=== PATIENT | female | born 1990 | race Caucasian/White ===

== ENCOUNTER 2017-03-26 19:24 | Emergency (ER) | payer OTHER ==
[~2017-03-26] VITALS: Ht 154.9 cm; Wt 79.1 kg
[~2017-03-26 19:24] MED LIST: PREN1TAB47 PO
[2017-03-26 19:30] VITALS: BP 131/92; PULSE 109; RESP 20; O2SAT 99
[2017-03-26 20:26] LABS: BASOPHILS % (AUTO) 0.2 % (0-3); EOSINOPHILS % (AUTO) 0.7 % (0-5); MONOCYTES % (AUTO) 6.9 % (4-12); Mean Corpuscular Hemoglobin 31.2 pg (27.0-35.0); Mean Corpuscular Volume 89.4 fL (81-100); NEUTROPHILS % (AUTO) 77.8 % (40-74); Platelet Count 203 bil/L (150-400)
[2017-03-26 20:45] LABS: Magnesium 1.8 mg/dL (1.6-2.6)
[2017-03-26 23:18] LABS: APPEARANCE,URINE SLIGHTLY CLOUDY (CLEAR,HAZY); COLOR,URINE YELLOW (YELLOW); OCCULT BLOOD,URINE TRACE (NEGATIVE); UROBILINOGEN,URINE NORMAL (NORMAL)
[2017-03-26] MEDS ORDERED: _Ondansetron ODT 4 mg Tablet PO PRN (23:45)
--- NOTE | 2017-03-26 23:52 | ED.REPORT ---
HPI-Abd Pain F Under 38 Date of Service Mar 26, 2017 ED Provider: Renaldo Guillen MD A 26 year old female with no pertinent medical history presents to the ED complaining of abdominal pain. 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 The pt then began to have significant abdominal cramping this morning with a fever of 102.1 degrees and blood in her stool. She was seen by her PCP today and diagnosed with a stomach virus. She was prescribed antibiotics but has not taken these yet. The pt was not on antibiotics prior to this visit. Nursing Notes Stated Complaint: ABDOMINAL PAIN, BLEEDING Chief Complaint: Female Abdominal Pain Nursing Notes Reviewed: Yes Allergies: Coded Allergies: Sulfa (Sulfonamide Antibiotics) (Verified Allergy, Severe, HIVES, 11/24/12) Scheduled Vit/Fe Fumarate/Fa-Expunged Drug, Do (-Expunged Drug, Do Not Renew!) 1 Tab Tablet 1 TAB PO DAILY General Time Seen by MD: 23:34 Chief Complaint Abdominal pain Hx Obtained From: Patient Arrived By: Walk-in Sudden in Onset?: No Onset Occurred: 9 - 12 hours ago Symptom Duration: Since onset Recent Healthcare: No recent hospitalization, Recent doctor visit Similar Sx Previous: No Past Medical History Past Medical History none reported Past Surgical History oral Smoking History Unknown if Ever Smoker Social History Other Social History: Good social support Ambulatory Status Independent Review of Systems Review of Systems Note: blood in stool Constitutional: Reports: Fever Respiratory: Denies: Non-productive cough, Shortness of breath Cardiovascular: Denies: Chest pain GI: Reports: Abdominal pain (cramping), Diarrhea, Denies: Nausea, Vomiting Musculoskeletal: Denies: Back pain, Neck pain Complete sys rev & neg: except as marked. Physical Exam Initial Vital Signs Vital Signs (First) Date Time Temp Pulse Resp B/P Pulse Ox O2 Delivery O2 Flow Rate FiO2 03/26/17 19:30 37.0 109 20 131/92 99 03/27/17 00:35 Room Air Initial VS: Reviewed General/Constitutional: Awake, Alert Respiratory / Chest: Atraumatic, Breath sounds NL, Breath sounds = bilat, No respiratory distress Cardiovascular: Heart rate NL, Regular rhythm, Heart sounds NL Abdomen: Atraumatic, Soft diffuse abdominal tenderness Back: Atraumatic, Full range of motion Head / Eyes: Atraumatic, Normocephalic, PERRL, EOMI ENT: Atraumatic, Airway patent Mouth: Positive: Mucous membranes dry (mild) Skin: Atraumatic, Color NL, No rash, Warm, Dry Neurologic: Oriented X3, Speech NL, No motor deficits, No sensory deficits Neck: Atraumatic, Supple, Full range of motion Upper Extremity / MS: Atraumatic, Full range of motion Lower Extremity / Pelvis / MS: Atraumatic, Full range of motion Psychiatric: Affect NL, Mood NL Interpretation & Diagnostics Lab Results Interpretation Result Diagram: 03/26/17200903/26/172009 Test 03/26/17 20:10 03/26/17 23:02 White Blood Count 8.2th/mm3 (3.8-10.1) Red Blood Count 4.45mil/mm3 (3.90-5.20) Hemoglobin 13.9g/dL (12.0-15.6) Hematocrit 39.8% (35.0-46.0) Mean Corpuscular Volume 89.4fL (81-100) Mean Corpuscular Hemoglobin 31.2pg (27.0-35.0) Mean Corpuscular Hemoglobin Concent 34.9% (32.0-37.0) Red Cell Distribution Width 12.5% (12.3-15.4) Platelet Count 203bil/L (150-400) Neutrophils (%) (Auto) 77.8% (40-74) Lymphocytes (%) (Auto) 14.3% (14-46) Monocytes (%) (Auto) 6.9% (4-12) Eosinophils (%) (Auto) 0.7% (0-5) Basophils (%) (Auto) 0.2% (0-3) Sodium Level 138mEq/L (134-144) Potassium Level 3.7mEq/L (3.5-5.2) Chloride Level 101mEq/L (97-108) Carbon Dioxide Level 23mmol/L (18-29) Blood Urea Nitrogen 6mg/dL (6-20) Creatinine 0.82mg/dL (0.57-1.00) Estimat Glomerular Filtration Rate 119mL/min (>59) Glucose Level 111mg/dL (60-99) Calcium Level 9.6mg/dL (8.5-10.1) Magnesium Level 1.8mg/dL (1.6-2.6) Total Bilirubin 0.4mg/dL (0.0-1.2) Aspartate Amino Transf (AST/SGOT) 17U/L (0-50) Alanine Aminotransferase (ALT/SGPT) 20U/L (0-32) Alkaline Phosphatase 58U/L (25-150) Total Protein 7.3g/dL (6.4-8.4) Albumin 4.2g/dL (3.4-5.0) Lipase 28U/L (13-60) Hold Castillo Top Tube Received (Received) Urine Color Yellow (YELLOW) Urine Appearance Slightly cloudy Urine pH 6.0 (5.0-8.0) Urine Specific [place] 1.020 (1.003-1.035) Urine Protein Tracemg/dL (NEG,TRACE) Urine Glucose (UA) Negativemg/dL (NEGATIVE) Urine Ketones Tracemg/dL (NEGATIVE) Urine Occult Blood Trace (NEGATIVE) Urine Nitrite Negative (NEGATIVE) Urine Bilirubin Negative (NEGATIVE) Urine Urobilinogen Normalmg/dL (NORMAL) Urine Leukocyte Esterase Moderate (NEGATIVE) Urine RBC 0-2/hpf (0-2) Urine WBC 11-50/hpf (0-5) Urine Epithelial Cells Many/hpf (NONE-MOD) Urine Crystals Oxalic acid crystals (NONE Urine Bacteria Moderate/hpf (NONE-FEW) Urine Hyaline Casts None/lpf (NONE) Urine Granular Casts None seen (NONE SEEN) Urine Waxy Casts None seen (NONE SEEN) Urine Red Blood Cell Casts None seen (NONE SEEN) Urine White Blood Cell Casts None seen (NONE SEEN) Urine Mucus Present (None Seen) Urine Trichomonas None seen (NONE SEEN) Urine Yeast None (NONE SEEN) Urinalysis Comment None Urine Culture Reflexed Indicated Re-Eval/Medical Decision Med Decision/Clinical Course Med Decision/Clinical Course: 26-year-old with fever and bloody stools as three week course of diarrhea. 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 Not anemic and a normal white count noted. A benign exam. No foreign travel or reason for over an parasite infection at this point beyond child contact. PCR obtained and sent. Defer antibiotics at this point until results are known this morning. Incidental asymptomatic pyuria. May be adequately treated with antibiotics as indicated for the GI tract, or may need to be treated with something strictly renally excreted, if antibiotics are otherwise not indicated. Decision deferred pending PCR Re-Evaluation/Progress : Time of Eval: 00:23 Patient Status: Condition improved Re-Evaluation/Progress Note: Pt rechecked, whose condition has improved. The diagnosis and plan for discharge are discussed. The pt understands and agrees with the plan. All questions are addressed at this time. Counseled Regarding: Diagnosis, Lab results, Need for follow-up, When/why to return to ED Discharge & Departure Primary Impression: Infectious enteritis Enteritis organism: enteritis due to unspecified bacterial infection Qualified Code: A04.9 - Bacterial intestinal infection, unspecified Additional Impression: Urinary tract infection Urinary tract infection type: acute cystitis Hematuria presence: without hematuria Qualified Code: N30.00 - Acute cystitis without hematuria Disposition: Home Discharge Condition All VS Reviewed: Yes Condition: Stable Patient Instructions: Acute Abdominal Pain (ED), Infectious Colitis (ED) Additional Instructions: We will have stool results tomorrow about noon time. You can call here for results. I will return at 9 PM tonight and contact you with those results. Until then, we need to defer antibiotics, until we know what the source of the infection is. Zofran up to four times daily if needed for nausea. Clear liquid diet for now, including Gatorade or Pedialyte or similar. Simple soups and avoid fats for now. Return if the bleeding becomes heavier or you develop any other new symptoms of concern. Referrals: CUONG SALAZAR MD (PCP) Blanche Attestation Portions of this note were transcribed by Raffi Burton. I, Dr. Guillen personally performed the history, physical exam and medical decision-making; I reviewed and confirmed the accuracy of the information in the transcribed note. Signed by: Blanche Berumen, 03/27/2017 and 0101. copies to: CUONG SALAZAR MD, Christopher W MD Mar 26, 2017 23:52 RAFFI BURTON Mar 26, 2017 23:58
[2017-03-27 00:35] VITALS: BP 132/94; PULSE 102; RESP 16; O2SAT 98
[2017-03-27] MEDS ORDERED: CIPR-198 PO (09:32)
== END 2017-03-27 00:36 | disposition home or self-care (01) ==
LOC: SED 19:24
DX: N30.00 Acute cystitis without hematuria (principal); A04.9 Bacterial intestinal infection, unspecified; Z88.2 Allergy status to sulfonamides